=== PATIENT | female | born 1950 | race Hispanic/Latino ===

== ENCOUNTER 2017-07-18 14:29 | Emergency (ER) | payer MEDICARE, OTHER ==
[~2017-07-18] VITALS: Ht 162.6 cm; Wt 106.6 kg
[~2017-07-18 14:29] MED LIST: ATORVASTATIN CA20 MG PO; DEXILANT30 MG PO; GABAPENTIN300 MG PO; GLUCOPHAGE850 MG PO; LEVOTHYROXINE75 MCG PO; LISINOPRIL10 MG PO; MECLIZINE HCL12.5 MG PO; METFORMIN HCL500 MG PO; NAPROXEN250 MG PO
--- OUTSIDE RECORDS SUMMARY | 2017-07-18 14:32 | XMS REPORT ---
[facility] Address Unknown Phone Unavailable Care Team Providers Care Janitorial Services Supervisor Name Role Phone Unavailable Unavailable Problems This patient has no known problems. Allergies, Adverse Reactions, Alerts This patient has no known allergies or adverse reactions. Medications This patient has no known medications. Encounters Start Date/Time End Date/Time Encounter Type Admission Type Attending [facility] Care Department Encounter ID 2017-07-25 00:00:00 2017-07-25 00:00:00 Outpatient [facility] [id number] 2017-05-04 09:07:04 2017-05-04 09:07:04 Outpatient [facility] [id number] 2017-04-27 14:52:13 2017-04-27 14:52:13 Outpatient [facility] [id number] 2017-04-19 13:42:25 2017-04-19 13:42:25 Outpatient [facility] [id number] 2017-04-17 13:08:11 2017-04-17 13:08:11 Outpatient [facility] [id number] 2017-04-07 08:58:01 2017-04-07 08:58:01 Outpatient [facility] [id number] 2017-04-07 08:19:19 2017-04-07 08:19:19 Outpatient [facility] [id number] 2017-04-03 13:18:36 2017-04-03 13:18:36 Outpatient [facility] [id number] 2017-03-31 00:00:00 2017-03-31 00:00:00 Outpatient [facility] [id number] 2017-03-29 00:00:00 2017-03-29 00:00:00 Outpatient [facility] [id number] 2017-03-23 16:19:03 2017-03-23 16:19:03 Outpatient [facility] [id number] 2017-03-21 10:23:42 2017-03-21 10:23:42 Outpatient [facility] [id number] 2017-03-21 00:00:00 2017-03-21 00:00:00 Outpatient [facility] [id number]
--- NOTE | 2017-07-18 15:38 | Diagnostic Imaging Report ---
PROCEDURE: Frontal and lateral views of the chest. COMPARISON: Patients [facility], DX, CHEST SINGLE (PORTABLE), 07/08/2016, 23:45. INDICATIONS: COUGH, BRONCHITIS FINDINGS: Lines/tubes: None. Lungs: The lungs are well inflated. Stable 4-5 mm nodular density in the right upper to midlung, projecting over the posterior aspect of the right sixth rib. There is no evidence of pneumonia or pulmonary edema. Pleura: There is no pleural effusion or pneumothorax. Heart and mediastinum: The heart and the mediastinum are normal. Bones: No acute bony abnormality. IMPRESSION: 1. No acute cardiopulmonary abnormalities. 2. Stable 4-5 mm nodular density in the right upper to midlung, likely representing a calcified granuloma. Rashard Harper M.D. Dictated by: Rashard Harper M.D. on 07/18/2017 at 15:40 Electronically approved by: Rashard Harper M.D. on 07/18/2017 at 15:40
[2017-07-18 17:57] VITALS: BP 149/88
== END 2017-07-18 17:45 | disposition home or self-care (01) ==
LOC: ER 14:29
DX: J20.9 Acute bronchitis, unspecified (principal)
CPT/HCPCS: 71046; 87400; 99283

== ENCOUNTER 2017-08-17 14:49 | Emergency (ER) | payer OTHER, MEDICARE ==
[~2017-08-17] VITALS: Ht 162.6 cm; Wt 106.6 kg
--- OUTSIDE RECORDS SUMMARY | 2017-08-17 14:52 | XMS REPORT | Clinical Summary ---
Author Author [facility] Organization [facility] Address Unknown Phone Unavailable Care Team Providers Care Channeler Runner Name Role Phone Jatin aHll MD PCP Allergies Active Allergy Reactions Severity Noted Date Comments Iodine (Bulk) Rash 01/11/2007 Current Medications Prescription Sig. Disp. Refills Start End Date Status Date blood glucose Use as directed.. 1 Kit 0 07/10/19 Active meterIndications: DM 15 (diabetes mellitus), type 2 gabapentin (NEURONTIN) Take 1 capsule by mouth 3 270 capsule 0 Active 300 mg times daily. 15 capsuleIndications: Low back pain without sciatica, unspecified back pain laterality naproxen (NAPROSYN) 500 Take 1 tablet by mouth 2 90 tablet 1 03/31/19 Active mg tabletIndications: times daily (with meals). 16 Pain in joint, multiple sites, Chronic pain of right knee, Low back pain without sciatica, unspecified back pain laterality Miscellaneous Medical by [facility] [place]Non-Drug; Combo 1 Each 0 05/17/19 Active Supply MiscIndications: Route) route Permanent 17 Primary osteoarthritis of Handicap sticker. both knees sucralfate (CARAFATE) 100 Take 10 mL by mouth 4 420 mL 0 09/15/19 Active mg/mL oral times daily. 17 suspensionIndications: Gastroesophageal reflux disease, esophagitis presence not specified loratadine (CLARITIN) 10 Take 1 tablet by mouth 30 tablet 3 09/15/19 Active mg tabletIndications: daily. 17 Allergic rhinitis, unspecified chronicity, unspecified seasonality, unspecified trigger acetaminophen-codeine Take 1 tablet by mouth 2 40 tablet 0 07/05/20 Active (TYLENOL/CODEINE #3) times daily as needed for 17 300-30 mg per Pain. tabletIndications: Pain of right hip joint blood glucose test Check blood glucose 2 50 Each 3 10/04/19 Active stripsIndications: times weekly. 17 Controlled type 2 diabetes mellitus with complication, without long-term current use of insulin predniSONE (DELTASONE) 50 Take 1 tablet the 3 tablet 0 03/21/19 Active mg tabletIndications: 13 hours before your 18 Rash and other scheduled procedure nonspecific skin Take 1 tablet 7 hours eruption, Lung nodule before your scheduled Take 1 tablet 1 hour before your scheduled procedure,. diphenhydrAMINE HCl 50 mg Take 1 tablet 1 hour 1 tablet 0 03/21/19 Active tabletIndications: Rash before your scheduled 18 and other nonspecific procedure. skin eruption, Lung nodule famotidine (PEPCID) 20 mg Take 1 tablet by mouth 2 14 tablet 0 Active tabletIndications: Rash times daily as needed 18 and other nonspecific (heartburn). skin eruption, Lung nodule meclizine (ANTIVERT) 25 Take 1 tablet by mouth 3 30 tablet 0 03/21/19 Active mg TabIndications: times daily as needed for 18 Dizziness Other (dizziness). nystatin (NYSTOP) 100,000 Apply to affected area 4 15 g 0 03/21/19 Active unit/gram topical times daily. 18 powderIndications: Rash and other nonspecific skin eruption lancetsIndications: Check your blood glucose 100 Each 0 03/24/19 Active Impaired fasting glucose every morning. 18 atorvastatin (LIPITOR) 40 Take 1 tablet by mouth at 90 tablet 0 Active mg tabletIndications: bedtime nightly. 18 Dyslipidemia lisinopril (PRINIVIL, Take 1 tablet by mouth 90 tablet 0 04/27/19 Active ZESTRIL) 20 mg tablet daily Needs appointment 18 prior to next refill. metFORMIN (GLUCOPHAGE) Take 1 tablet by mouth 2 180 tablet 1 04/27/19 Active 500 mg tabletIndications: times daily (with meals) 18 Controlled type 2 For diabetes. diabetes mellitus with complication, without long-term current use of insulin levothyroxine (SYNTHROID) TAKE ONE TABLET BY MOUTH 90 tablet 0 Active 175 mcg ONCE DAILY IN THE MORNING 18 tabletIndications: BEFORE BREAKFAST. Hypothyroidism, unspecified type famotidine (PEPCID) 20 mg Take 1 tablet by mouth 90 tablet 1 04/27/19 Active tabletIndications: daily. 18 Gastroesophageal reflux disease, esophagitis presence not specified lancetsIndications: Check your blood glucose 1 Box 2 07/02/19 Discontin Impaired fasting glucose every morning. 15 18 ued blood glucose test Check blood glucose 2 50 Each 3 07/30/19 Discontin stripsIndications: High times weekly. 16 17 ued blood sugar dexlansoprazole Take 1 capsule by mouth 90 capsule 2 09/10/19 Discontin (DEXILANT) 30 mg delayed daily. 16 17 ued release capsuleIndications: GERD (gastroesophageal reflux disease) atorvastatin (LIPITOR) 40 Take 1 tablet by mouth at 90 tablet 0 03/21/19 Discontin mg tabletIndications: bedtime nightly. 16 18 ued Dyslipidemia meclizine (ANTIVERT) 25 Take 1 tablet by mouth 3 30 tablet 0 06/07/19 03/21/19 Discontin mg TabIndications: times daily as needed for 17 18 ued Dizziness Other (dizziness). lisinopril (PRINIVIL) 20 Take 1 tablet by mouth 90 tablet 1 06/07/19 02/09/20 Discontin mg tabletIndications: daily For blood pressure. 17 17 ued Essential hypertension, benign levothyroxine (SYNTHROID) Take 1 tablet by mouth 30 tablet 0 06/07/19 09/01/19 Discontin 175 mcg every morning (before 17 17 ued tabletIndications: breakfast). Hypothyroidism, unspecified type metFORMIN (GLUCOPHAGE) Take 1 tablet by mouth 2 180 tablet 1 06/07/19 04/27/19 Discontin 500 mg tabletIndications: times daily (with meals) 17 18 ued Controlled type 2 For diabetes. diabetes mellitus with complication, without long-term current use of insulin levothyroxine (SYNTHROID) TAKE ONE TABLET BY MOUTH 90 tablet 0 12/02/19 Discontin 175 mcg ONCE DAILY IN THE MORNING 17 17 ued tabletIndications: (BEFORE BREAKFAST) Hypothyroidism, unspecified type blood glucose test Check blood glucose 2 50 Each 3 09/16/19 Discontin stripsIndications: High times weekly. 17 17 ued blood sugar famotidine (PEPCID) 20 mg Take 1 tablet by mouth 90 tablet 1 09/15/19 04/27/19 Discontin tabletIndications: daily. 17 18 ued Gastroesophageal reflux disease, esophagitis presence not specified blood glucose test Check blood glucose 2 50 Each 3 09/16/19 Discontin stripsIndications: times weekly. 17 17 ued Controlled type 2 diabetes mellitus with complication, without long-term current use of insulin levothyroxine (SYNTHROID) TAKE ONE TABLET BY MOUTH 90 tablet 0 03/14/19 Discontin 175 mcg ONCE DAILY IN THE MORNING 17 18 ued tabletIndications: (BEFORE BREAKFAST) Hypothyroidism, unspecified type lisinopril (PRINIVIL, Take 1 tablet by mouth 90 tablet 0 02/10/20 Discontin ZESTRIL) 20 mg daily Needs appointment 17 18 ued tabletIndications: prior to next refill. Essential hypertension, benign levothyroxine (SYNTHROID) TAKE ONE TABLET BY MOUTH 90 tablet 0 03/21/19 Discontin 175 mcg ONCE DAILY IN THE MORNING 18 18 ued tabletIndications: BEFORE BREAKFAST Hypothyroidism, unspecified type atorvastatin (LIPITOR) 40 Take 1 tablet by mouth at 90 tablet 0 04/27/19 Discontin mg tabletIndications: bedtime nightly. 18 18 ued Dyslipidemia levothyroxine (SYNTHROID) TAKE ONE TABLET BY MOUTH 90 tablet 0 04/27/19 Discontin 175 mcg ONCE DAILY IN THE MORNING 18 18 ued tabletIndications: BEFORE BREAKFAST. Hypothyroidism, unspecified type Hospital, Clinic, or Ordered Dose Route Frequency Start End Date Status Other Facility Date Administered Medication lidocaine 1 % (XYLOCAINE) 2 mL IJ ONCE 10/29/19 10/29/19 Ended injection 2 17 17 mLIndications: Primary osteoarthritis of both knees triamcinolone acetonide 40 mg IX ONCE 10/29/19 10/29/19 Ended (KENALOG-40) injection 40 17 17 mgIndications: Primary osteoarthritis of both knees Active Problems Problem Noted Date Primary osteoarthritis of both knees 04/08/2015 Weakness of both lower extremities 04/08/2015 Difficulty walking 04/08/2015 DM II (diabetes mellitus, type II), controlled 02/17/2015 Obesity (BMI 30.0-34.9) 12/22/2011 Need for influenza vaccination 12/22/2011 High risk sexual behavior 12/22/2011 Other and unspecified hyperlipidemia 05/08/2007 Essential hypertension, benign Hypothyroidism Low back pain Abnormal glandular Papanicolaou smear of cervix Overview: [facility] Chest tightness or pressure Dizziness Hyperlipidemia Chest pain Encounters Date Type Specialty Care Team Description 07/25/2017 Lab Appointment Lab Ramez Hall MD Controlled type 2 diabetes mellitus without complication, without long-term current use of insulin; Essential hypertension: at goal 05/04/2017 Office Visit Rheumatology Keya Ledbetter MD Positive ISABEL ( antinuclear Jonas Abdi, antibody) (Primary Dx); Fellow() Osteoarthritis of both knees, unspecified osteoarthritis type; Thyroid disease; Family history of systemic lupus erythematosus; Pes anserine bursitis; Obesity (BMI 30.0-34.9) 04/27/2017 Office Visit Family Practice Ramez Hall MD Controlled type 2 diabetes mellitus without complication, without long-term current use of insulin (Primary Dx); Essential hypertension: at goal; Dyslipidemia; Controlled type 2 diabetes mellitus with complication, without long-term current use of insulin; Hypothyroidism, unspecified type; Gastroesophageal reflux disease, esophagitis presence not specified; Positive ISABEL (antinuclear antibody):L f/u with rheumatology 04/17/2017 Ancillary Radiology Rash and other Procedure nonspecific skin eruption; Lung nodule 04/17/2017 Ancillary Family Practice Ramez Hall MD Rash and other Orders nonspecific skin eruption; Lung nodule 04/07/2017 Office Visit Family Practice Ramez Hall MD Positive ISABEL (antinuclear antibody) (Primary Dx); Encounter for immunization ; Elevated MCV; Unsteadiness on feet ; Weakness of both lower extremities 03/30/2017 Orders Only Family Practice Ramez Hall MD Positive ISABEL (antinuclear antibody) (Primary Dx); Hypothyroidism, unspecified type 03/23/2017 Lab Appointment Lab Ramez Hall MD Rash and other nonspecific skin eruption; Lung nodule 03/23/2017 Orders Only Family Practice Ramez Hall MD 03/21/2017 Office Visit Family Practice Ramez Hall MD Rash and other nonspecific skin eruption (Primary Dx); Lung nodule; Dyslipidemia; Hypothyroidism, unspecified type; Dizziness 03/21/2017 Refill [facility] Earl Anderson RN Impaired fasting glucose 03/14/2017 Refill [facility] Ramez Hall MD Hypothyroidism, unspecified type 02/20/2017 Pharmacy Visit 02/08/2017 Pharmacy Visit 02/08/2017 Refill [facility] Bernardino Gann III, MD Essential hypertension, benign 12/01/2016 Refill [facility] Ramez Hall MD Hypothyroidism, unspecified type 10/28/2016 Office Visit [facility] Ramez Hall MD Primary osteoarthritis of IsrealAmador MD both knees 09/30/2016 Refill [facility] Ramez Hall MD Controlled type 2 diabetes mellitus with complication, without long-term current use of insulin (Primary Dx) 09/26/2016 Telephone [facility] Cheyenne Adkins RN Information Only 09/26/2016 Orders Only [facility] Cheyenne Adkins RN Controlled type 2 diabetes mellitus with complication, without long-term current use of insulin (Primary Dx) 09/15/2016 Pharmacy Visit 09/14/2016 Office Visit [facility] Ramez Hall MD Gastroesophageal reflux disease, esophagitis presence not specified (Primary Dx); Primary osteoarthritis of both knees; Controlled type 2 diabetes mellitus with complication, without long-term current use of insulin; Pain of right hip joint; Chronic pain of right knee,; Allergic rhinitis, unspecified chronicity, unspecified seasonality, unspecified trigger 09/14/2016 Pharmacy Visit 09/12/2016 Refill [facility] Ramez Hall MD High blood sugar 08/31/2016 Refill [facility] Bernardino Gann III, MD Hypothyroidism, unspecified type (Primary Dx) 08/23/2016 Refill [facility] Bernardino Gann III, MD after 08/16/2016 Immunizations Name Dates Previously Given Next Due Influenza Vaccine 04/20/2015 (Deferred: Patient Refused), 12/22/2011 Influenza Vaccine, 04/07/2017 (Deferred: Vaccine Unavailable) Seasonal, Injectable PCV 13 (Pnuemococcal 04/07/2017 Conjugated 13 Valent) Pneumoccoccal 11/10/2011 TDap (Tetanus Toxoid, 04/07/2017 Reduced Diphtheria Toxoid And Acellular Pertussis, Absorbed) Td Tetanus, diphtheria 01/11/2007 Toxoids Vaccine Tropicamide 0.5% Eye-Sabrina 06/20/2016 15ml Family History Medical History Relation Name Comments Cancer Father prostate Hypertension Father Arthritis Mother Diabetes Mother Heart Mother IA at age 66 Stroke Mother Relation Name Status Comments Father (Age 70) Mother stroke (Age 67) Social History Tobacco Use Types Packs/Day Years Used Date Never Smoker Smokeless Tobacco: Never Used Tobacco Cessation: Counseling Given: Yes Alcohol Use Drinks/Week oz/Week Comments Yes Social Sex Assigned at Date Recorded Not on file Last Filed Vital Signs Vital Sign Reading Time Taken Blood Pressure 143/70 05/04/2017 9:06 AM CABLE INSTALLATION MANAGER Pulse 76 05/04/2017 9:06 AM CABLE INSTALLATION MANAGER Temperature 36.7 C (98 F) 05/04/2017 9:06 AM CABLE INSTALLATION MANAGER Respiratory Rate 18 05/04/2017 9:06 AM CABLE INSTALLATION MANAGER Oxygen Saturation - - Inhaled Oxygen - - Concentration Weight 106.2 kg (234 lb 3.2 oz) 05/04/2017 9:06 AM CABLE INSTALLATION MANAGER Height 162.6 cm (5' 4") 05/04/2017 9:06 AM CABLE INSTALLATION MANAGER Body Mass Index 40.2 05/04/2017 9:06 AM CABLE INSTALLATION MANAGER Plan of Treatment Health Maintenance Due Date Last Done Comments DM FOOT EXAM (YEARLY) 06/06/2017 06/06/2016 DM MICROALBUMIN URINE 06/20/2017 06/20/2016, 07/09/2015, 07/01/2014, SCRN (YEARLY) Additional history exists DM RETINAL EXAM (YEARLY) 06/20/2017 06/20/2016, 08/20/2014, 07/21/2014, Additional history exists BREAST CANCER SCRN 07/04/2017 07/04/2016, 04/15/2015, 02/14/2013, (YEARLY) Additional history exists COLORECTAL CANCER SCRN 07/26/2017 07/26/2016, 10/18/2007, 10/18/2007, ANNUAL (FIT/FOBT) AGE 51 Additional history exists TO 76 DM HGBA1C (YEARLY) 07/25/2018 07/25/2017, 03/23/2017, 06/20/2016, Additional history exists IMM PNEUMOCOCCAL AGE 66 Completed 11/10/2011 AND UP Results * HEMOGLOBIN A1C (07/25/2017 8:16 AM) Only the most recent of 2 results within the time period is included. Component Value Ref Range Hemoglobin A1c 6.3 (H) 4.3 - 6.1 % Est Average Gluc 134.1 mg/dL Specimen Performing Laboratory Blood MIS[facility] * LIVER PROFILE (07/25/2017 8:16 AM) Component Value Ref Range T Protein 6.4 6.0 - 8.3 g/dL Albumin 3.8 3.7 - 5.3 g/dL T Bilirubin 0.5 0.2 - 1.2 mg/dL Alk Phos 69 34 - 104 U/L AST 18 13 - 39 U/L ALT 30 7 - 52 U/L D Bilirubin 0.1 0.0 - 0.2 mg/dL Specimen Performing Laboratory Blood [facility]IS[facility] * LIPID PROFILE (07/25/2017 8:16 AM) Component Value Ref Range Cholesterol 186 mg/dL Comment: REFERENCE RANGE: Desirable: <200 mg/dL Borderline: 200-240 mg/dL High Risk: >240 mg/dL Triglyceride 135 <150 mg/dL Comment: REFERENCE RANGE: Normal: <150 mg/dL Borderline High: 150-199 mg/dL High: 200-499 mg/dL Very High: >be=211 mg/dL HDL 45 mg/dL Comment: Increased CHD risk: <40 mg/dL Decreased CHD risk: >60 mg/dL LDL 114 mg/dL Comment: REFERENCE RANGE: Optimal: <100 mg/dL Near Optimal: 100-129 mg/dL Borderline High: 130-159 mg/dL High: 160-189 mg/dL Very High: >bl=624 mg/dL Specimen Performing Laboratory Blood [facility]IS[facility] * CBC/DIFF (07/25/2017 8:16 AM) Only the most recent of 2 results within the time period is included. Component Value Ref Range WBC 5.6 4.5 - 11.0 K/uL RBC 4.48 4.20 - 5.40 M/uL Hemoglobin 13.3 12.0 - 16.0 g/dL Hematocrit 42.8 37.0 - 47.0 % MCV 96 (H) 82 - 92 fL MCH 29.7 27.0 - 32.0 pg MCHC 31.1 (L) 32.0 - 36.0 g/dL RDW 50.4 (H) 36.4 - 46.3 fL Platelet 199 150 - 400 K/uL Mean Platelet Volume 12.1 9.4 - 12.4 fL Percent NRBC 0.0 Absolute NRBC 0.00 Neutrophil 58.6 34.0 - 70.0 % Lymphocyte 27.9 20.0 - 50.0 % Monocyte 10.7 5.0 - 12.0 % Eosinophil 1.6 0.7 - 5.0 % Basophil 0.7 0.1 - 1.2 % Pct Immat Gran 0.5 0.0 - 0.5 Neutrophil, Abs 3.28 1.56 - 6.13 K/uL Lymphocyte, Abs 1.56 1.18 - 3.74 K/uL Monocyte, Abs 0.60 (H) 0.24 - 0.36 K/uL Eosinophil, Abs 0.09 0.04 - 0.36 K/uL Basophil, Abs 0.04 0.01 - 0.08 K/uL Absol Immat Gran 0.03 0.00 - 0.03 K/uL Specimen Performing Laboratory Blood [facility]IS[facility] * BASIC METABOLIC PANEL (07/25/2017 8:16 AM) Component Value Ref Range CO2 30 21 - 31 mmol/L Chloride 106 98 - 107 mmol/L Potassium 4.3 3.5 - 5.1 mmol/L Sodium 144 136 - 145 mmol/L Glucose 107 70 - 110 mg/dL Urea Nitrogen 17 7 - 25 mg/dL Creatinine 0.70 0.6 - 1.2 mg/dL Anion Gap 8 Calcium 9.3 8.6 - 10.3 mg/dL GFR, Estimated >60 mL/min/1.73 m2 GFR, Estim, Afr-Am >60 mL/min/1.73 m2 Specimen Performing Laboratory Blood [facility] * BMP POC (04/19/2017 2:06 PM) Component Value Ref Range TCO2 POC 30 21 - 32 mmol/L Chloride POC 103 98 - 107 mmol/L Potassium POC 3.7 3.50 - 5.10 mmol/L Sodium POC 141 136 - 145 mmol/L Glucose POC 111 (H) 74 - 106 mg/dL Urea Nitrogen POC 14 7 - 18 mg/dL Creatinine POC 0.8 0.6 - 1.3 mg/dL Ionized Calcium POC 0.98 (L) 1.15 - 1.29 mmol/L GFR, Estimated >60 mL/min/1.73 m2 GFR, Estim, Afr-Am >60 mL/min/1.73 m2 Specimen Performing Laboratory [facility] * CT CHEST W/O CONTRAST ROUTINE (04/17/2017 1:55 PM) Specimen Performing Laboratory SMS Impressions IMPRESSION: A calcified granuloma in the right upper lobe from old granulomatous disease corresponds to the nodular opacity seen on comparison chest radiograph. Dictated By: Anupam Jones MD, 04/17/2017 2:12 PM I have reviewed the study and agree with the findings in this report. Signed By: Autumn Begum MD, 04/17/2017 4:28 PM Narrative EXAM: CT Chest WITHOUT contrast INDICATION: Lung nodule COMPARISON: Chest radiograph 01/13/2016 TECHNIQUE: Chest was scanned utilizing a multidetector helical scanner from the lung apex through the level of the adrenal glands without administration of IV contrast. Absence of intravenous contrast decreases sensitivity for detection of lymphadenopathy and vascular pathology. Coronal and sagittal reformations were obtained. Low dose protocol was performed. IV CONTRAST: None COMPLICATIONS: None RADIATION DOSE: Total DLP: 138 mGy*cm Estimated effective dose: (DLP x 0.014 x size factor) mSv CTDIvol has been reviewed. It is below the limits set by the Radiation Protocol Committee (RPC). FINDINGS: LUNGS AND AIRWAYS: A 7 mm calcified granuloma in the right upper lobe (series 2, image 46) from old granulomatous disease. The lungs parenchyma is otherwise normal.Airways are normal. PLEURA: The pleural spaces are clear. HEART AND MEDIASTINUM: The thyroid gland is normal.No mediastinal, hilar or axillary lymphadenopathy.The heart is normal in size.There is no pericardial effusion. Mild calcification of the aortic annulus and aortic arch. UPPER ABDOMEN: Status post cholecystectomy. Otherwise, visualized unenhanced portions of the liver, spleen, adrenal glands, kidneys, and bowel are unremarkable. BONES: Mild multilevel degenerative changes of the thoracic spine. SOFT TISSUES: Unremarkable. Procedure Note Interface, Rad/Mammog In - 04/17/2017 4:33 PM CABLE INSTALLATION MANAGER EXAM: CT Chest WITHOUT contrast INDICATION: Lung nodule COMPARISON: Chest radiograph 01/13/2016 TECHNIQUE: Chest was scanned utilizing a multidetector helical scanner from the lung apex through the level of the adrenal glands without administration of IV contrast. Absence of intravenous contrast decreases sensitivity for detection of lymphadenopathy and vascular pathology. Coronal and sagittal reformations were obtained. Low dose protocol was performed. IV CONTRAST: None COMPLICATIONS: None RADIATION DOSE: Total DLP: 138 mGy*cm Estimated effective dose: (DLP x 0.014 x size factor) mSv CTDIvol has been reviewed. It is below the limits set by the Radiation Protocol Committee (RPC). FINDINGS: LUNGS AND AIRWAYS: A 7 mm calcified granuloma in the right upper lobe (series 2, image 46) from old granulomatous disease. The lungs parenchyma is otherwise normal. Airways are normal. PLEURA: The pleural spaces are clear. HEART AND MEDIASTINUM: The thyroid gland is normal. No mediastinal, hilar or axillary lymphadenopathy. The heart is normal in size. There is no pericardial effusion. Mild calcification of the aortic annulus and aortic arch. UPPER ABDOMEN: Status post cholecystectomy. Otherwise, visualized unenhanced portions of the liver, spleen, adrenal glands, kidneys, and bowel are unremarkable. BONES: Mild multilevel degenerative changes of the thoracic spine. SOFT TISSUES: Unremarkable. IMPRESSION IMPRESSION: A calcified granuloma in the right upper lobe from old granulomatous disease corresponds to the nodular opacity seen on comparison chest radiograph. Dictated By: Anupam Jones MD, 04/17/2017 2:12 PM I have reviewed the study and agree with the findings in this report. Signed By: Autumn Begum MD, 04/17/2017 4:28 PM * CCP IGG ABS (04/07/2017 8:55 AM) Component Value Ref Range CCP Abs IgG/IgA 3 Reference range: 0 to 19 Unit: units (note) Negative <20 Weak positive 20 - 39 Moderate positive 40 - 59 Strong positive >59 Specimen Performing Laboratory Blood [facility] * FOLIC ACID (04/07/2017 8:55 AM) Component Value Ref Range Folic Acid 17.5 5.9 - 24.8 ng/mL Specimen Performing Laboratory Blood [facility] * VITAMIN B12 (04/07/2017 8:55 AM) Component Value Ref Range Vitamin B12 427 211 - 911 pg/mL Specimen Performing Laboratory Blood [facility]IS[facility] * RA FACTOR (04/07/2017 8:55 AM) Component Value Ref Range RA Factor <10 0 - 15 IU/mL Specimen Performing Laboratory Blood [facility] * SJOGREN'S AB (04/03/2017 1:17 PM) Component Value Ref Range Anti SSA Negative 0 - 15 EU/mL Comment: REFERENCE RANGE: Negative <16 Equivocal 16-20 Positive >20 Anti SSB Negative 0 - 15 EU/mL Comment: REFERENCE RANGE: Negative <16 Equivocal 16-20 Positive >20 Specimen Performing Laboratory Blood [facility]IS[facility] * ANTI TORRES BOTTOM FILLER AB (04/03/2017 1:17 PM) Component Value Ref Range Anti-Sm/BOTTOM FILLER Negative EU/mL Comment: REFERENCE RANGE: Negative <16 Equivocal 16-20 Positive >20 Specimen Performing Laboratory Blood MISYS * ANTI TORRES AB (04/03/2017 1:17 PM) Component Value Ref Range Anti-Torres Negative EU/mL Comment: REFERENCE RANGE: Negative <16 Equivocal 16-20 Positive >20 Specimen Performing Laboratory Blood MIS[facility] * CRP, HIGH SENS (04/03/2017 1:17 PM) Component Value Ref Range CRP, high sens 0.804 (H) 0.000 - 0.300 mg/dL Specimen Performing Laboratory Blood [facility] * TSH (04/03/2017 1:17 PM) Only the most recent of 2 results within the time period is included. Component Value Ref Range TSH 0.97 0.45 - 3.50 uIU/mL Specimen Performing Laboratory Blood MIS[facility] * SED RATE (04/03/2017 1:17 PM) Component Value Ref Range Sed Rate 26 <30 mm/Hr Specimen Performing Laboratory Blood [facility]IS[facility] * ANTI DSDNA BY CRITHIDIA (04/03/2017 1:17 PM) Component Value Ref Range Anti dsDNA Negative NEG Titer Specimen Performing Laboratory Blood [facility] * CK (04/03/2017 1:17 PM) Component Value Ref Range CK 141 30 - 200 U/L Specimen Performing Laboratory Blood MIS[facility] * COMPLEMENT C4 (04/03/2017 1:17 PM) Component Value Ref Range Complement C4 31.3 10.0 - 40.0 mg/dL Specimen Performing Laboratory Blood MISYS * COMPLEMENT C3 (04/03/2017 1:17 PM) Component Value Ref Range Complement C3 134.0 90.0 - 180.0 mg/dL Specimen Performing Laboratory Blood [facility]IS[facility] * COMPREHENSIVE METABOLIC PANEL(DBIL NOT INCLUDED) (03/23/2017 4:19 PM) Component Value Ref Range Albumin 3.3 (L) 3.4 - 5.0 g/dL Calcium 8.7 8.50 - 10.20 mg/dL CO2 28.7 21 - 32 mmol/L Chloride 106 98 - 107 mmol/L Creatinine 0.77 0.60 - 1.30 mg/dL Glucose 99 70 - 99 mg/dL Alk Phos 72 45 - 117 U/L Potassium 3.8 3.50 - 5.10 mmol/L Sodium 142 136 - 145 mmol/L ALT 47 12 - 78 U/L AST 32 15 - 37 U/L Urea Nitrogen 13 7 - 18 mg/dL T Bilirubin 0.5 0.2 - 1.0 mg/dL T Protein 6.9 6.4 - 8.2 g/dL GFR, Estimated >60 mL/min/1.73 m2 GFR, Estim, Afr-Am >60 mL/min/1.73 m2 Anion Gap 7.3 Specimen Performing Laboratory Blood [facility]IS[facility] * ISABEL (03/23/2017 4:19 PM) Component Value Ref Range ISABEL Screen Positive (A) NEG ISABEL Titer 640 Titer ISABEL Pattern Homogenous Pattern Specimen Performing Laboratory Blood [facility] * XRAY HIP BILATERAL 2 VIEWS AND AP PELVIS (09/14/2016 4:11 PM) Specimen Performing Laboratory SMS Impressions IMPRESSION: No acute osseous lesion. Mild degenerative arthrosis of the hips. Signed By: Evan Cruz MD, 09/15/2016 8:17 AM Narrative Bilateral hip radiograph HISTORY:righ thip pain COMPARISON: None DISCUSSION: There is no displaced fracture or malalignment. Mild narrowing of the joint spaces of the hips. The visualized soft tissues appear unremarkable. Procedure Note Interface, Rad/Mammog In - 09/15/2016 8:22 AM CDT Bilateral hip radiograph HISTORY: righ thip pain COMPARISON: None DISCUSSION: There is no displaced fracture or malalignment. Mild narrowing of the joint spaces of the hips. The visualized soft tissues appear unremarkable. IMPRESSION: No acute osseous lesion. Mild degenerative arthrosis of the hips. Signed By: Evan Cruz MD, 09/15/2016 8:17 AM after 08/16/2016
--- OUTSIDE RECORDS SUMMARY | 2017-08-17 14:52 | XMS REPORT | Continuity of Care Document ---
Author Author [facility] Organization [facility] Address [address] [place] [address] Phone Unavailable Care Team Providers Care Lan Administrator Name Role Phone NO, PCP PCP Unavailable Insurance Providers Guarantor Stephanie Hernandez Address [address] [place] [address] [facility] Policy Number [id number] Subscriber's Name ChanellStephanie Relationship 18 Self / Same As Patient Group Number [id number] Effective Date 17 [facility] Policy Number [id number] Subscriber's Name HernandezStephanie Relationship 18 Self / Same As Patient Effective Date 16 Advance Directives Directive Response Recorded Date/Time Does the patient have an advance directive? No 07/09/16 3:16am If yes, is advance directive on file with [facility]? No 07/09/16 3:16am If not on file with [facility] will patient provide a copy? No 07/27/16 9:16am Do you have a Directive to Physician? No 07/18/17 3:53pm Do you have a Medical Power of Director Life? No 07/18/17 3:53pm Do you have an out of hospital Do Not Resuscitate Order? No 07/18/17 3:53pm Do you have any special needs we should be aware of? No 07/18/17 3:53pm Do you have a support person here with you today? Yes 07/18/17 3:53pm Did patient receive Notice of Privacy Practices? Yes 07/18/17 3:53pm Did patient receive patient rights and responsibilities? Yes 07/18/17 3:53pm Problems Medical Problem Onset Date Status Chest pain Unknown Medications Current Home Medications Medication Dose Units Route Directions Days Qty Instructions Start Date Atorvastatin Calcium 20 Mg Tablet 40 Mg Oral Bedtime 30 Tab Gabapentin 300 Mg Capsule 300 Mg Oral Three Times A Day 60 Cap Levothyroxine Sodium 75 Mcg Tablet 175 Mcg Oral Daily 30 Tab Lisinopril 10 Mg Tablet 20 Mg Oral Daily 30 Tab Meclizine Hcl 12.5 Mg Tablet 25 Mg Oral Three Times A Day as needed for Dizziness Metformin Hcl 500 Mg Tablet 500 Mg Oral Twice A Day 60 Tab Metformin Hcl (Glucophage) 850 Mg Tablet 500 Mg Oral Twice A Day Past Home Medications Medication Directions Ordered Status Dexlansoprazole (Dexilant) 30 Mg Cap., 30 Mg Oral Daily Discontinued Naproxen 250 Mg Tablet, 500 Mg Oral Twice A Day Discontinued Social History Social History Problem Response Recorded Date/Time Onset Date Status Hx Psychiatric Problems No 07/09/2016 3:16am Not Applicable Not Applicable Hx Substance Use Disorder No 07/27/2016 9:45am Not Applicable Not Applicable Hx Alcohol Use No 07/27/2016 9:45am Not Applicable Not Applicable Smoking Status Start Date Stop Date Never Smoker Hospital Discharge Instructions No hospital discharge instruction information available. Plan of Care Discharge Date 07/18/17 5:45pm Disposition HOME, SELF-CARE Condition at Discharge Stable Instructions/Education Provided Bronchitis (Acute) - Adult Forms Provided Work/School Excuse Prescriptions See Medication Section Referrals PASHA JOE MD Address: [address] [place] [id number] Additional Instructions/Education 1. increase oral fluids 2. return to ed as needed Functional Status No functional status information available. Allergies, Adverse Reactions, Alerts Allergen Type Severity Reaction Status Last Updated Iodine Allergy Intermediate Active 07/18/17 Immunizations No immunization information available. Vital Signs Acute Vital Signs Vital Response Date/Time Pulse Pulse Rate (adult) 76 bpm (60 - 90) 07/18/2017 5:57pm Respiratory Rate 20 bpm (12 - 24) 07/18/2017 5:57pm Blood Pressure 149/88 mm Hg 07/18/2017 5:57pm Height 5 ft 4 in 07/18/2017 2:46pm Weight 235 lb 07/18/2017 2:46pm Body Mass Index 40.3 kg/m^2 07/18/2017 2:46pm Results Laboratory Results Test Name Result Units Flags Reference Collection Date/Time Result Date/ Time Comments Influenza Virus Types A,B Antigen NEGATIVE NEGATIVE 07/18/2017 4:16pm 07/18/2017 5:00pm Procedures Procedure Status Date Provider(s) X-ray of chest, two views Active 07/18/17 TAMIA AMAYA SWORD SWALLOWER Encounters Encounter Location Arrival/Admit Date Discharge/Depart Date Attending Provider Departed Emergency Room [facility] 07/18/17 2:29pm 5:45pm TYSON DUMONT MD
--- NOTE | 2017-08-17 16:14 | Diagnostic Imaging Report ---
Exams: Cervical spine CTs without IV contrast History: Neck pain/tingling in right neck radiates to arm. Comparison studies: None Technique: Axial images were obtained through the cervical region. Coronal and sagittal images reconstructed from the axial data. Intravenous contrast: None Findings: Evaluation from C5 C6-T1 is somewhat limited by attenuation artifact related due to the patient's shoulders. Atlantoaxial articulation: Intact Alignment: Straightened cervical curvature may be positional. Mild cervical curvature convex to the right, nonspecific, also possibly positional. Cervicomedullary junction: No abnormalities. Patent foramen magnum. Soft tissues: No gross abnormalities. Vertebrae: No fractures, neoplasm or infection. Degenerative changes: C2-C3: Mild bilateral facet arthrosis. Patent canal and foramina. C3-4: Moderate canal stenosis due to a disc bulge and thickened ligamentum flavum. Mild bilateral frontal stenosis due to uncovertebral arthrosis. . C4-5: Small disc bulge indents the thecal sac without gross significant canal stenosis. Uncovertebral and bilateral facet arthrosis with without significant foraminal stenosis. C5-6: Mildly degenerated disc with loss of disc height. Mild canal stenosis due to disc osteophyte complex. Moderate right and mild left foraminal stenosis due to uncovertebral arthrosis. C6-7: Mildly degenerated disc with loss of disc height. At least mild canal stenosis due to disc osteophyte complex. Severe bilateral foraminal stenosis due to uncovertebral arthrosis. C7-T1: Bilateral facet arthrosis. No significant canal or foraminal stenosis. IMPRESSION: 1. Mildly degenerated C5-C6 and C6-C7 discs. 2. Moderate canal stenosis at C3-C4 where there is a central disc protrusion. Mild canal stenosis at C5-C6 and C6-C7 due to disc osteophyte complexes. 3. Multilevel degenerative foraminal stenosis, worse/severe bilaterally at C6-C7. Signed by: Dr. Kiel Weiss M.D. on 08/17/2017 4:11 PM
[2017-08-17] MEDS ORDERED: KETOROLAC TROMETHAMINE 30 MG/ML VIAL IV STA (16:58)
[2017-08-17 17:34] LABS: BASOPHILS % 0.6 % (0.0-1.0); EOSINOPHILS # (AUTO) 0.1 (0.0-0.4); EOSINOPHILS % 0.9 % (0.0-6.0); HEMATOCRIT 42.4 % (34.2-44.1); HEMOGLOBIN 13.8 g/dL (12.0-16.0); LYMPHOCYTES # (AUTO) 1.7 (1.0-3.2); LYMPHOCYTES % 25.1 % (18.0-39.1); MEAN CORPUSCULAR HEMOGLOBIN 30.2 pg (28-32); MEAN CORPUSCULAR HGB CONC 32.5 g/dL (31-35); MEAN CORPUSCULAR VOLUME 92.8 fL (81-99); MONOCYTES # (AUTO) 0.6 (0.2-0.8); MONOCYTES % 9.2 % (4.4-11.3); NEUTROPHILS # (AUTO) 4.3 (2.1-6.9); NEUTROPHILS % 63.9 % (38.7-80.0); PLATELET COUNT 192 x10e3/uL (140-360); RED BLOOD COUNT 4.57 x10e6/uL (3.6-5.1); RED CELL DISTRIBUTION WIDTH 14.4 % (11.7-14.4)
[2017-08-17 17:52] LABS: ANION GAP 11.8 mmol/L (8-16); BLOOD UREA NITROGEN 13 mg/dL (7-26); BUN/CREATININE RATIO 17 (6-25); CALCIUM 9.1 mg/dL (8.4-10.2); CARBON DIOXIDE 29 mmol/L (22-29); CHLORIDE 104 mmol/L (98-107); CREATINE KINASE 356 IU/L (29-168); CREATININE, SERUM 0.77 mg/dL (0.57-1.11); EST GLOMERULAR FILTRATION RATE > 60 ML/MIN (60-); GLUCOSE 93 mg/dL (74-118); POTASSIUM 3.8 mmol/L (3.5-5.1); SODIUM 141 mmol/L (136-145)
[2017-08-17 18:52] VITALS: BP 166/91
== END 2017-08-17 19:03 | disposition home or self-care (01) ==
LOC: ER 14:49
DX: M25.511 Pain in right shoulder (principal); M79.621 Pain in right upper arm; M25.521 Pain in right elbow; M79.631 Pain in right forearm; M54.12 Radiculopathy, cervical region; I10 Essential (primary) hypertension; E11.9 Type 2 diabetes mellitus without complications; E03.9 Hypothyroidism, unspecified
CPT/HCPCS: 36415; 72125; 80048; 82550; 82553; 84484; 85025; 93005; 99283; J1885

== ENCOUNTER 2017-12-26 16:34 | Emergency (ER) | payer MEDICARE ==
[~2017-12-26] VITALS: Ht 162.6 cm; Wt 106.6 kg
--- OUTSIDE RECORDS SUMMARY | 2017-12-26 16:38 | XMS REPORT | Clinical Summary ---
Author Author [facility] Organization [facility] Address Unknown Phone Unavailable Care Team Providers Care Grades 1 Through 5 Teacher Name Role Phone Ramez Hall MD PCP Allergies Active Allergy Reactions Severity Noted Date Comments Iodine (Bulk) Rash 01/11/2007 Current Medications Prescription Sig. Disp. Refills Start End Date Status Date blood glucose Use as directed.. 1 Kit 0 07/10/19 Active meterIndications: DM 15 (diabetes mellitus), type 2 gabapentin (NEURONTIN) Take 1 capsule by mouth 3 270 capsule 0 02/18/20 Active 300 mg times daily. 15 capsuleIndications: Low back pain without sciatica, unspecified back pain laterality naproxen (NAPROSYN) 500 Take 1 tablet by mouth 2 90 tablet 1 03/31/19 Active mg tabletIndications: times daily (with meals). 16 Pain in joint, multiple sites, Chronic pain of right knee, Low back pain without sciatica, unspecified back pain laterality Miscellaneous Medical by [facility].(Non-Drug; Combo 1 Each 0 [...] tablet by mouth 2 40 tablet 0 09/15/19 Active (TYLENOL/CODEINE #3) times daily as needed [...] tablet by mouth 2 14 tablet 0 03/21/19 Active tabletIndications: Rash times daily as needed [...] by mouth at 90 tablet 0 04/27/19 Active mg tabletIndications: bedtime nightly. 18 Dyslipidemia levothyroxine (SYNTHROID) TAKE ONE TABLET BY MOUTH 90 tablet 0 04/27/19 Active 175 mcg ONCE DAILY IN THE MORNING 18 tabletIndications: BEFORE BREAKFAST. Hypothyroidism, unspecified type famotidine (PEPCID) 20 mg Take 1 tablet by mouth 90 tablet 1 04/27/19 Active tabletIndications: daily. 18 Gastroesophageal reflux disease, esophagitis presence not specified levothyroxine (SYNTHROID) TAKE ONE TABLET BY MOUTH 90 tablet 0 12/21/19 Active 175 mcg ONCE DAILY IN THE MORNING 18 tabletIndications: BEFORE BREAKFAST Hypothyroidism, unspecified type levothyroxine (SYNTHROID) TAKE ONE TABLET BY MOUTH 90 tablet 0 12/23/19 Active 175 mcg ONCE DAILY IN THE MORNING 18 tabletIndications: BEFORE BREAKFAST Hypothyroidism, unspecified type lisinopril (PRINIVIL, TAKE 1 TABLET BY MOUTH 90 tablet 0 12/27/19 Active ZESTRIL) 20 mg ONCE DAILY (NEED 18 tabletIndications: APPOINTMENT PRIOR TO Essential hypertension, NEXT REFILL) benign atorvastatin (LIPITOR) 40 TAKE ONE TABLET BY MOUTH 90 tablet 0 12/27/19 Active mg tabletIndications: AT BEDTIME NIGHTLY 18 Dyslipidemia metFORMIN (GLUCOPHAGE) TAKE 1 TABLET BY MOUTH 180 tablet 1 12/27/19 Active 500 mg tabletIndications: TWICE DAILY (WITH MEALS) 18 Controlled type 2 FOR DIABETES diabetes mellitus with complication, without long-term current use of insulin lancetsIndications: Check your blood glucose 1 Box 2 07/02/19 03/21/19 Discontin Impaired fasting glucose every morning. 15 18 ued atorvastatin (LIPITOR) 40 Take 1 tablet by mouth at 90 tablet 0 09/10/19 03/21/19 Discontin mg tabletIndications: bedtime nightly. 16 [...] pressure. 17 17 ued Essential hypertension, benign metFORMIN (GLUCOPHAGE) Take 1 tablet by mouth 2 180 tablet 1 06/07/19 04/27/19 Discontin 500 mg tabletIndications: times daily (with meals) 17 18 ued Controlled type 2 For diabetes. diabetes mellitus with complication, without long-term current use of insulin famotidine (PEPCID) 20 mg Take 1 tablet by mouth 90 tablet 1 09/15/19 04/27/19 Discontin tabletIndications: daily. 17 18 ued Gastroesophageal reflux disease, esophagitis presence not specified levothyroxine (SYNTHROID) TAKE ONE TABLET BY MOUTH 90 tablet 0 12/06/19 03/14/19 Discontin 175 mcg ONCE DAILY IN THE MORNING 17 18 ued tabletIndications: (BEFORE BREAKFAST) Hypothyroidism, unspecified type lisinopril (PRINIVIL, Take 1 tablet by mouth 90 tablet 0 02/10/20 04/27/19 Discontin ZESTRIL) 20 mg daily Needs appointment 17 18 ued tabletIndications: prior to next refill. Essential hypertension, benign levothyroxine (SYNTHROID) TAKE ONE TABLET BY MOUTH 90 tablet 0 03/16/19 03/21/19 Discontin 175 mcg ONCE DAILY IN THE MORNING 18 18 ued tabletIndications: BEFORE BREAKFAST Hypothyroidism, unspecified type atorvastatin (LIPITOR) 40 Take 1 tablet by mouth at 90 tablet 0 03/21/19 04/27/19 Discontin mg tabletIndications: bedtime nightly. 18 18 ued Dyslipidemia levothyroxine (SYNTHROID) TAKE ONE TABLET BY MOUTH 90 tablet 0 03/21/19 04/27/19 Discontin 175 mcg ONCE DAILY IN THE MORNING 18 18 ued tabletIndications: BEFORE BREAKFAST. Hypothyroidism, unspecified type lisinopril (PRINIVIL, Take 1 tablet by mouth 90 tablet 0 04/27/19 09/27/19 Discontin ZESTRIL) 20 mg tablet daily Needs appointment 18 18 ued prior to next refill. metFORMIN (GLUCOPHAGE) Take 1 tablet by mouth 2 180 tablet 1 04/27/19 12/27/19 Discontin 500 mg tabletIndications: times daily (with meals) 18 18 ued Controlled type 2 For diabetes. diabetes mellitus with complication, without long-term current use of insulin lisinopril (PRINIVIL, TAKE 1 TABLET BY MOUTH 90 tablet 0 09/28/19 12/27/19 Discontin ZESTRIL) 20 mg ONCE DAILY NEEDS 18 18 ued tabletIndications: APPOINTMENT PRIOR TO NEXT Essential hypertension, REFILL benign Active Problems Problem Noted Date Primary osteoarthritis [...] Encounters Date Type Specialty Care Team Description 12/26/2017 Refill Family Practice Ramez Hall MD Dyslipidemia; Controlled type 2 diabetes mellitus with complication, without long-term current use of insulin 12/26/2017 Refill [facility] Jelena Del Rio MD Essential hypertension, benign 12/21/2017 Refill [facility] Ramez Hall MD Hypothyroidism, unspecified type 12/18/2017 Refill [facility] Ramez Hall MD Hypothyroidism, unspecified type 09/26/2017 Refill [facility] Ramez Hall MD Essential hypertension, benign (Primary Dx) 07/25/2017 Lab Appointment Lab Ramez Hall MD Controlled type 2 diabetes mellitus without complication, without long-term current use of insulin; Essential hypertension: at goal 05/04/2017 Office Visit Rheumatology Keya Ledbetter MD Positive ISABEL (antinuclear BittarJonas, antibody) (Primary Dx); Fellow() Osteoarthritis of both knees, unspecified osteoarthritis type; Thyroid disease; Family history of systemic lupus erythematosus; Pes anserine bursitis; Obesity (BMI 30.0-34.9) 04/27/2017 Office Visit [facility] Ramez Hall MD Controlled type 2 [...] skin eruption; Lung nodule 04/07/2017 Office Visit [facility] Ramez Hall MD Positive ISABEL (antinuclear [...] Dyslipidemia; Hypothyroidism, unspecified type; Dizziness 03/21/2017 Refill Family Practice Earl Anderson RN Impaired fasting glucose 03/14/2017 Refill [facility] Ramez Hall MD Hypothyroidism, unspecified type 02/20/2017 Pharmacy Visit 02/08/2017 Pharmacy Visit 02/08/2017 Refill Family Practice Bernardino Gann MD Essential hypertension, benign after 12/25/2016 Immunizations Name Dates Previously Given Next Due [...] Father Arthritis Mother Diabetes Mother Heart Mother PA at age 66 Stroke Mother Relation Name [...] Taken Blood Pressure 143/70 05/04/2017 9:06 AM HEALTH TECHNICAL WRITER Pulse 76 05/04/2017 9:06 AM HEALTH TECHNICAL WRITER Temperature 36.7 C (98 F) 05/04/2017 9:06 AM HEALTH TECHNICAL WRITER Respiratory Rate 18 05/04/2017 9:06 AM HEALTH TECHNICAL WRITER Oxygen Saturation - - Inhaled Oxygen - - Concentration Weight 106.2 kg (234 lb 3.2 oz) 05/04/2017 9:06 AM HEALTH TECHNICAL WRITER Height 162.6 cm (5' 4") 05/04/2017 9:06 AM HEALTH TECHNICAL WRITER Body Mass Index 40.2 05/04/2017 9:06 AM HEALTH TECHNICAL WRITER Plan of Treatment Health Maintenance Due Date Last Done Comments DM Foot Exam (Yearly) 06/06/2017 06/06/2016 DM Retinal Exam (Yearly) 06/20/2017 06/20/2016, 08/20/2014, 07/21/2014, Additional history exists Breast Cancer Scrn 07/04/2017 07/04/2016, 04/15/2015, 02/14/2013, (Yearly) Additional history exists Colorectal Cancer Scrn 07/26/2017 07/26/2016, 10/18/2007, 10/18/2007, Annual (FIT/FOBT) Age 51 Additional history exists to 76 DM HGBA1C (Yearly) 07/25/2018 07/25/2017, 03/23/2017, 06/20/2016, Additional history exists IMM Pneumococcal Age 66 Completed 11/10/2011 and Up Procedures Procedure Name Priority Date/Time Associated Diagnosis Comments LIPID PROFILE Routine 07/25/2017 Controlled type 2 Results for this 8:16 AM CDT diabetes mellitus without procedure are in the complication, without results section. long-term current use of insulin Essential hypertension: at goal CBC/DIFF Routine 07/25/2017 Controlled type 2 Results for this 8:16 AM CDT diabetes mellitus without procedure are in the complication, without results section. long-term current use of insulin Essential hypertension: at goal HEMOGLOBIN A1C Routine 07/25/2017 Controlled type 2 Results for this 8:16 AM CDT diabetes mellitus without procedure are in the complication, without results section. long-term current use of insulin Essential hypertension: at goal BASIC METABOLIC PANEL Routine 07/25/2017 Controlled type 2 Results for this 8:16 AM CDT diabetes mellitus without procedure are in the complication, without results section. long-term current use of insulin Essential hypertension: at goal LIVER PROFILE Routine 07/25/2017 Controlled type 2 Results for this 8:16 AM CDT diabetes mellitus without procedure are in the complication, without results section. long-term current use of insulin Essential hypertension: at goal BMP POC Routine 04/19/2017 Results for this 2:06 PM HEALTH TECHNICAL WRITER procedure are in the results section. CT CHEST W/O CONTRAST Routine 04/17/2017 Rash and other Results for this ROUTINE 1:55 PM HEALTH TECHNICAL WRITER nonspecific skin eruption procedure are in the Lung nodule results section. FOLIC ACID Routine 04/07/2017 Positive ISABEL (antinuclear Results for this 8:55 AM HEALTH TECHNICAL WRITER antibody) procedure are in the Elevated MCV results section. Weakness of both lower extremities Unsteadiness on feet VITAMIN B12 Routine 04/07/2017 Unsteadiness on feet Results for this 8:55 AM HEALTH TECHNICAL WRITER Positive ISABEL (antinuclear procedure are in the antibody) results section. Elevated MCV Weakness of both lower extremities CCP IGG ABS Routine 04/07/2017 Positive ISABEL (antinuclear Results for this 8:55 AM HEALTH TECHNICAL WRITER antibody) procedure are in the Elevated MCV results section. RA FACTOR Routine 04/07/2017 Positive ISABEL (antinuclear Results for this 8:55 AM HEALTH TECHNICAL WRITER antibody) procedure are in the Elevated MCV results section. SED RATE Routine 04/03/2017 Positive ISABEL (antinuclear Results for this 1:17 PM HEALTH TECHNICAL WRITER antibody) procedure are in the Hypothyroidism, results section. unspecified type COMPLEMENT C4 Routine 04/03/2017 Positive ISABEL (antinuclear Results for this 1:17 PM HEALTH TECHNICAL WRITER antibody) procedure are in the Hypothyroidism, results section. unspecified type COMPLEMENT C3 Routine 04/03/2017 Positive ISABEL (antinuclear Results for this 1:17 PM HEALTH TECHNICAL WRITER antibody) procedure are in the Hypothyroidism, results section. unspecified type CRP, HIGH SENS Routine 04/03/2017 Positive ISABEL (antinuclear Results for this 1:17 PM HEALTH TECHNICAL WRITER antibody) procedure are in the Hypothyroidism, results section. unspecified type CK Routine 04/03/2017 Positive ISABEL (antinuclear Results for this 1:17 PM HEALTH TECHNICAL WRITER antibody) procedure are in the Hypothyroidism, results section. unspecified type SJOGREN'S AB Routine 04/03/2017 Positive ISABEL (antinuclear Results for this 1:17 PM HEALTH TECHNICAL WRITER antibody) procedure are in the Hypothyroidism, results section. unspecified type ANTI DSDNA BY CRITHIDIA Routine 04/03/2017 Positive ISABEL (antinuclear Results for this 1:17 PM HEALTH TECHNICAL WRITER antibody) procedure are in the Hypothyroidism, results section. unspecified type ANTI TORRES [employer] AB Routine 04/03/2017 Positive ISABEL (antinuclear Results for this 1:17 PM HEALTH TECHNICAL WRITER antibody) procedure are in the Hypothyroidism, results section. unspecified type ANTI TORRES AB Routine 04/03/2017 Positive ISABEL (antinuclear Results for this 1:17 PM HEALTH TECHNICAL WRITER antibody) procedure are in the Hypothyroidism, results section. unspecified type TSH Routine 04/03/2017 Positive ISABEL (antinuclear Results for this 1:17 PM HEALTH TECHNICAL WRITER antibody) procedure are in the Hypothyroidism, results section. unspecified type ISABEL Routine 03/23/2017 Rash and other Results for this 4:19 PM HEALTH TECHNICAL WRITER nonspecific skin eruption procedure are in the results section. HEMOGLOBIN A1C Routine 03/23/2017 Rash and other Results for this 4:19 PM HEALTH TECHNICAL WRITER nonspecific skin eruption procedure are in the Lung nodule results section. CBC/DIFF Routine 03/23/2017 Rash and other Results for this 4:19 PM HEALTH TECHNICAL WRITER nonspecific skin eruption procedure are in the Lung nodule results section. COMPREHENSIVE METABOLIC Routine 03/23/2017 Rash and other Results for this PANEL(DBIL NOT INCLUDED) 4:19 PM HEALTH TECHNICAL WRITER nonspecific skin eruption procedure are in the Lung nodule results section. TSH Routine 03/23/2017 Rash and other Results for this 4:19 PM HEALTH TECHNICAL WRITER nonspecific skin eruption procedure are in the Lung nodule results section. after 12/25/2016 Results * HEMOGLOBIN A1C (07/25/2017 8:16 AM) Only the most recent of 2 results within the time period is included. Hemoglobin A1c 6.3 (H) 4.3 - 6.1 % [facility] IMMUNOLOGY Est Average Gluc 134.1 mg/dL [facility]MMUN[facility] Specimen Blood Performing Organization Address [facility] [place] Phone Number [facility] * LIVER PROFILE (07/25/2017 8:16 AM) T Protein 6.4 6.0 - 8.3 g/dL BT MAIN-STATION 1 Albumin 3.8 3.7 - 5.3 g/dL BT [facility] 1 T Bilirubin 0.5 0.2 - 1.2 mg/dL BT MAIN[facility] 1 Alk Phos 69 34 - 104 U/L BT [facility] 1 AST 18 13 - 39 U/L BT [facility] 1 ALT 30 7 - 52 U/L BT [facility] 1 D Bilirubin 0.1 0.0 - 0.2 mg/dL BT [facility] 1 Specimen Blood Performing Organization Address [facility] [place] Phone Number [facility] BT [facility]IN[facility] 1 * LIPID PROFILE (07/25/2017 8:16 AM) Cholesterol 186 mg/dL BT [facility]IN-ST[facility] 1 Comment: REFERENCE RANGE: Desirable: <200 mg/dL Borderline: 200-240 mg/dL High Risk: >240 mg/dL Triglyceride 135 <150 mg/dL BT MAIN-STATION 1 Comment: REFERENCE RANGE: Normal: <150 mg/dL Borderline High: 150-199 mg/dL High: 200-499 mg/dL Very High: >fk=463 mg/dL HDL 45 mg/dL BT MAIN-STATION 1 Comment: Increased CHD risk: <40 mg/dL Decreased CHD risk: >60 mg/dL LDL 114 mg/dL BT [facility]ST[facility] 1 Comment: REFERENCE RANGE: Optimal: <100 mg/dL Near Optimal: 100-129 mg/dL Borderline High: 130-159 mg/dL High: 160-189 mg/dL Very High: >ma=665 mg/dL Specimen Blood Performing Organization Address City/State/Zipcode Phone Number [facility] BT [facility] 1 * CBC/DIFF (07/25/2017 8:16 AM) Only the most recent of 2 results within the time period is included. WBC 5.6 4.5 - 11.0 K/uL BT [facility]IN[facility] 2 RBC 4.48 4.20 - 5.40 M/uL BT [facility] 2 Hemoglobin 13.3 12.0 - 16.0 g/dL BT [facility] 2 Hematocrit 42.8 37.0 - 47.0 % BT [facility] 2 MCV 96 (H) 82 - 92 fL BT [facility] 2 MCH 29.7 27.0 - 32.0 pg BT [facility]IN[facility] 2 MCHC 31.1 (L) 32.0 - 36.0 g/dL BT [facility] 2 RDW 50.4 (H) 36.4 - 46.3 fL BT [facility] 2 Platelet 199 150 - 400 K/uL BT [facility] 2 Mean Platelet Volume 12.1 9.4 - 12.4 fL BT [facility] 2 Percent NRBC 0.0 BT [facility] 2 Absolute NRBC 0.00 BT [facility] 2 Neutrophil 58.6 34.0 - 70.0 % BT [facility] 2 Lymphocyte 27.9 20.0 - 50.0 % BT [facility] 2 Monocyte 10.7 5.0 - 12.0 % BT [facility] 2 Eosinophil 1.6 0.7 - 5.0 % BT [facility] 2 Basophil 0.7 0.1 - 1.2 % BT [facility] 2 Pct Immat Gran 0.5 0.0 - 0.5 BT [facility] 2 Neutrophil, Abs 3.28 1.56 - 6.13 K/uL BT [facility]IN[facility] 2 Lymphocyte, Abs 1.56 1.18 - 3.74 K/uL BT [facility] 2 Monocyte, Abs 0.60 (H) 0.24 - 0.36 K/uL BT [facility]IN[facility] 2 Eosinophil, Abs 0.09 0.04 - 0.36 K/uL BT [facility]IN[facility] 2 Basophil, Abs 0.04 0.01 - 0.08 K/uL BT [facility] 2 Absol Immat Gran 0.03 0.00 - 0.03 K/uL BT [facility] 2 Specimen Blood Performing Organization Address [facility] [place] Phone Number [facility] 2 * BASIC METABOLIC PANEL (07/25/2017 8:16 AM) CO2 30 21 - 31 mmol/L BT [facility]IN[facility] 1 Chloride 106 98 - 107 mmol/L BT [facility] 1 Potassium 4.3 3.5 - 5.1 mmol/L BT [facility] 1 Sodium 144 136 - 145 mmol/L BT [facility] 1 Glucose 107 70 - 110 mg/dL BT [facility] 1 Urea Nitrogen 17 7 - 25 mg/dL BT [facility] 1 Creatinine 0.70 0.6 - 1.2 mg/dL BT [facility] 1 Anion Gap 8 BT [facility] 1 Calcium 9.3 8.6 - 10.3 mg/dL BT [facility] 1 GFR, Estimated >60 mL/min/1.73 m2 BT [facility] 1 GFR, Estim, Afr-Am >60 mL/min/1.73 m2 BT [facility] 1 Specimen Blood Performing Organization Address [facility] [place] Phone Number [facility] 1 * BMP POC (04/19/2017 2:06 PM) TCO2 POC 30 21 - 32 mmol/L [facility] Chloride POC 103 98 - 107 mmol/L [facility] Potassium POC 3.7 3.50 - 5.10 mmol/L [facility] Sodium POC 141 136 - 145 mmol/L [facility] Glucose POC 111 (H) 74 - 106 mg/dL [facility] Urea Nitrogen POC 14 7 - 18 mg/dL [facility] Creatinine POC 0.8 0.6 - 1.3 mg/dL [facility] Ionized Calcium POC 0.98 (L) 1.15 - 1.29 mmol/L [facility] GFR, Estimated >60 mL/min/1.73 m2 [facility] GFR, Estim, Afr-Am >60 mL/min/1.73 m2 [facility] Performing Organization Address City/State/Zipcode Phone Number [facility] * CT CHEST W/O CONTRAST ROUTINE (04/17/2017 1:55 PM) Impressions Performed At IMPRESSION: SMS A calcified granuloma in the right upper lobe from old granulomatous disease corresponds to the nodular opacity seen on comparison chest radiograph. Dictated By: Anupam Jones MD, 04/17/2017 2:12 PM I have reviewed the study and agree with the findings in this report. Signed By: Autumn Begum MD, 04/17/2017 4:28 PM Narrative Performed At EXAM: CT Chest WITHOUT contrast SMS INDICATION: Lung nodule COMPARISON: Chest radiograph 01/13/2016 [...] Interface, Rad/Mammog In - 04/17/2017 4:33 PM HEALTH TECHNICAL WRITER EXAM: CT Chest WITHOUT contrast INDICATION: Lung [...] By: Autumn Begum MD, 04/17/2017 4:28 PM Performing Organization Address [facility] [place] Phone Number SMS * CCP IGG ABS (04/07/2017 8:55 AM) CCP Abs IgG/IgA 3 LABORATORY Reference range: 0 to 19 [employer] Unit: units AMRIK (note) Negative <20 Weak [id number] - 39 Moderate [id number] - 59 Strong positive>59 Specimen Blood Performing Organization Address [facility] [place] Phone Number [employer] [address] [place], [place] [address] AMRIK 145 * FOLIC ACID (04/07/2017 8:55 AM) Folic Acid 17.5 5.9 - 24.8 ng/mL BT [facility] 3 Specimen Blood Performing Organization Address [facility] [place] Phone Number [employer] BT [facility]IN[facility] 3 * VITAMIN B12 (04/07/2017 8:55 AM) Vitamin B12 427 211 - 911 pg/mL BT [facility] 3 Specimen Blood Performing Organization Address [facility] [place] Phone Number [facility] BT MAIN-STATION 3 * RA FACTOR (04/07/2017 8:55 AM) RA Factor <10 0 - 15 IU/mL BT [facility] 4 Specimen Blood Performing Organization Address [facility] [place] Phone Number [facility] BT MAIN-STATION 4 * SJOGREN'S AB (04/03/2017 1:17 PM) Anti SSA Negative 0 - 15 EU/mL BT DIAGNOSTIC Comment: IMMUNOLOGY REFERENCE RANGE: Negative<16 [id number] Positive>20 Anti SSB Negative 0 - 15 EU/mL [facility] Comment: IMMUNOLOGY REFERENCE RANGE: Negative<16 [id number] Positive>20 Specimen Blood Performing Organization Address [facility] [place] Phone Number [facility] BT DIAGNOSTIC IMMUNOLOGY * ANTI TORRES [employer] AB (04/03/2017 1:17 PM) Anti-Sm/[employer] Negative EU/mL BT DIAGNOSTIC Comment: IMMUNOLOGY REFERENCE RANGE: Negative<16 [id number] Positive>20 Specimen Blood Performing Organization Address [facility] [place] Phone Number [facility] BT DIAGNOSTIC IMMUNOLOGY * ANTI TORRES AB (04/03/2017 1:17 PM) Anti-Torres Negative EU/mL BT DIAGNOSTIC Comment: IMMUNOLOGY REFERENCE RANGE: Negative<16 [id number] Positive>20 Specimen Blood Performing Organization Address [facility] [place] Phone Number [facility] BT DIAGNOSTIC IMMUNOLOGY * CRP, HIGH SENS (04/03/2017 1:17 PM) CRP, high sens 0.804 (H) 0.000 - 0.300 mg/dL BT MAIN[facility]STATION 4 Specimen Blood Performing Organization Address [facility] [place] Phone Number [facility] BT MAIN-STATION 4 * TSH (04/03/2017 1:17 PM) Only the most recent of 2 results within the time period is included. TSH 0.97 0.45 - 3.50 uIU/mL BT MAIN[facility]STATION 3 Specimen Blood Performing Organization Address [facility] [place] Phone Number [facility] * SED RATE (04/03/2017 1:17 PM) Sed Rate 26 <30 mm/Hr BT MAIN-STATION 3 Specimen Blood Performing Organization Address [facility]/Zipcode Phone Number [facility] BT MAIN-STATION 3 * ANTI DSDNA BY CRITHIDIA (04/03/2017 1:17 PM) Anti dsDNA Negative NEG Titer BT DI[facility]STIC IMMUNOLOGY Specimen Blood Performing Organization Address [facility] Phone Number [facility] BT [facility]IC IMMUNOLOGY * CK (04/03/2017 1:17 PM) CK 141 30 - 200 U/L BT MAIN[facility]STATION 4 Specimen Blood Performing Organization Address [facility] Phone Number [facility] BT [facility]IN-ST[facility] 4 * COMPLEMENT C4 (04/03/2017 1:17 PM) Complement C4 31.3 10.0 - 40.0 mg/dL BT MAIN-STATION 4 Specimen Blood Performing Organization Address [facility] Phone Number [facility] BT [facility]IN-ST[facility] 4 * COMPLEMENT C3 (04/03/2017 1:17 PM) Complement C3 134.0 90.0 - 180.0 mg/dL BT MAIN-STATION 4 Specimen Blood Performing Organization Address [facility] [place] Phone Number [facility] BT MAIN-STATION 4 * COMPREHENSIVE METABOLIC PANEL(DBIL NOT INCLUDED) (03/23/2017 4:19 PM) Albumin 3.3 (L) 3.4 - 5.0 g/dL BT MAIN-STATION 3 Calcium 8.7 8.50 - 10.20 mg/dL BT MAIN[facility]STATION 3 CO2 28.7 21 - 32 mmol/L BT MAIN[facility] 3 Chloride 106 98 - 107 mmol/L BT [facility] 3 Creatinine 0.77 0.60 - 1.30 mg/dL BT [facility] 3 Glucose 99 70 - 99 mg/dL BT [facility] 3 Alk Phos 72 45 - 117 U/L BT [facility] 3 Potassium 3.8 3.50 - 5.10 mmol/L BT [facility]IN[facility] 3 Sodium 142 136 - 145 mmol/L BT [facility]IN[facility] 3 ALT 47 12 - 78 U/L BT [facility] 3 AST 32 15 - 37 U/L BT [facility]ST[facility] 3 Urea Nitrogen 13 7 - 18 mg/dL BT [facility] 3 T Bilirubin 0.5 0.2 - 1.0 mg/dL BT [facility] 3 T Protein 6.9 6.4 - 8.2 g/dL BT [facility]IN[facility] 3 GFR, Estimated >60 mL/min/1.73 m2 BT MAIN-STATION 3 GFR, Estim, Afr-Am >60 mL/min/1.73 m2 BT [facility]IN[facility]STATION 3 Anion Gap 7.3 BT [facility]IN[facility]STATION 3 Specimen Blood Performing Organization Address City/State/[facility] Phone Number [facility] BT [facility]-STATION 3 * ISABEL (03/23/2017 4:19 PM) ISABEL Screen Positive (A) NEG BT DIAGNOSTIC IMMUNOLOGY ISABEL Titer 640 Titer BT DIAGNOSTIC IMMUNOLOGY ISABEL Pattern Homogenous Pattern BT DIAGNOSTIC IMMUNOLOGY Specimen Blood Performing Organization Address City/State[facility] Number MISYS BT DIAGNOSTIC IMMUNOLOGY after 12/25/2016
[2017-12-26] MEDS ORDERED: HYDROCODONE/APAP 10MG-325MG TAB PO ONE (16:45)
[2017-12-26] MEDS ORDERED: KETOROLAC TROMETHAMINE 60 MG/2 ML VIAL IM ONE (16:45)
[2017-12-26] MEDS ORDERED: CYCLOBENZAPRINE HCL 10 MG TAB PO ONE (16:45)
[2017-12-26] MEDS ORDERED: TRAMADOL HCL 50 MG TAB PO ONE (17:15)
[2017-12-26 17:18] LABS: BILIRUBIN,URINE NEGATIVE (NEGATIVE); CLARITY,URINE CLEAR (CLEAR); COLOR,URINE YELLOW (YELLOW); KETONES,URINE NEGATIVE (NEGATIVE); LEUKOCYTE ESTERASE ,URINE TRACE (NEGATIVE); NITRITE,URINE NEGATIVE (NEGATIVE); PROTEIN,URINE DIPSTICK NEGATIVE (NEGATIVE); URINE UROBILINOGEN 0.2 mg/dL (0.2 - 1)
[2017-12-26 17:29] LABS: BACTERIA,URINE MODERATE /HPF; EPITHELIAL CELLS,URINE MANY /LPF; RENAL EPITHELIAL CELLS,URINE FEW; TRANSITIONAL EPI CELLS,URINE MODERATE
[2017-12-26 18:07] VITALS: BP 134/72
== END 2017-12-26 18:17 | disposition home or self-care (01) ==
LOC: ER 16:34
DX: M54.5 Low back pain (principal); N39.0 Urinary tract infection, site not specified; I10 Essential (primary) hypertension; E11.9 Type 2 diabetes mellitus without complications; E03.9 Hypothyroidism, unspecified; K21.9 Gastro-esophageal reflux disease without esophagitis
CPT/HCPCS: 81001; 87086; 99283; J1885

== ENCOUNTER → 2018-02-13 | Outpatient (CLI) | payer MEDICARE ==
--- NOTE | 2018-02-27 08:48 | Diagnostic Imaging Report ---
#[id number] - MGSCRBIL #BILATERAL DIGITAL SCREENING MAMMOGRAM WITH CAD: 02/13/2018 CLINICAL: Routine screening. Comparison is made to exams dated: 04/15/2015 mammogram, 02/14/2013 mammogram and 07/04/2016 mammogram - [facility]. Current study contains 4 films. The tissue of both breasts is predominantly fatty. Current study was also evaluated with a Computer Aided Detection (CAD) system. There are benign calcifications in both breasts. There also are benign vascular calcifications in the right breast. No significant masses, calcifications, or other findings are seen in either breast. There has been no significant interval change. IMPRESSION: BENIGN There is no mammographic evidence of malignancy. A 1 year screening mammogram is recommended. The patient will be notified by letter of the results. Bryn akers/gayle:02/23/2018 08:19:59 Rug Dry Room Attendant: Ivory WILLETT)(Zach), [facility] letter sent: Compared to Prior B9 Mammogram BI-RADS: 2 Benign
== END ==
LOC: MAMMO 13:03
PROVIDERS: ATTEND Internal Medicine
DX: Z12.31 Encounter for screening mammogram for malignant neoplasm of breast (principal)
CPT/HCPCS: 77067

== ENCOUNTER → 2018-09-19 | Outpatient (CLI) | payer MEDICARE, OTHER ==
--- NOTE | 2018-09-21 08:17 | Diagnostic Imaging Report ---
EXAMINATION: Bone mineral density study. COMPARISON: None. HISTORY: Menopausal state DISCUSSION: Evaluation of the left hip and lumbar spine was performed utilizing a DEXA Hologic bone densitometer. The study is technically adequate. The left hip total bone mineral density is 0.892 gm/cm2, the T-score is -0.5, and the Z-score is 0.8. The left hip femoral neck bone mineral density is 0.814 gm/cm2, the T-score is -0.5, and the Z-score is 1.1. The lumbar spine total bone mineral density is 1.188 gm/cm2, the T-score is 1.3, and the Z-score is 3.2. IMPRESSION: 1. WHO classification of normal bone mineral density for the left hip with no increase risk of fracture. 2. WHO classification of normal bone mineral density for the lumbar spine with no increased risk of fracture. The patient's fracture risk is compared to an age-matched control. Medical evaluation for secondary causes of low bone bone mineral density may be appropriate. Correlate clinically for the necessity and timing of the next bone mineral density study. National [employer]opor[employer] Foundation recommendations: Initiate therapy to reduce fracture risk in postmenopausal women with -BMD t-scores below -2.0 by central DXA with no risk factors -BMD t-scores below -1.5 by central DXA with one or more risk factors (first deg relative with hip fracture, prior personal fracture, low body weight, smoking) -A prior vertebral or hip fracture AACE (Clinical Endocrinology) recommends treating the following: Postmenopausal women who have osteoporosis as diagnosed by fragility fractures or t scores -2.5 or below Postmenopausal women who have risk factors (including fh of hip fracture, low body weight, smoking, risk of falling, high bone turnover, advancing age) and borderline low BMD T scores of -1.5 or below Adequate intake of calcium (at least 1200mg/day) and vitamin D (400-800 IU/day). Regular weight bearing and muscle - strengthening exercises Avoid smoking and excessive alcohol Signed by: Dr. Rashard Harper M.D. on 09/21/2018 8:13 AM
== END ==
LOC: DX 15:26
PROVIDERS: ATTEND Internal Medicine
DX: Z78.0 Asymptomatic menopausal state (principal); M15.9 Polyosteoarthritis, unspecified
CPT/HCPCS: 77080

== ENCOUNTER → 2019-09-10 | Outpatient (CLI) | payer OTHER, MEDICARE | LOC: MAMMO 13:39 | PROVIDERS: ATTEND Internal Medicine | DX: Z12.31 Encounter for screening mammogram for malignant neoplasm of breast (principal) | CPT/HCPCS: 77067 ==

== ENCOUNTER → 2020-01-16 | Outpatient (CLI) | payer MEDICARE | LOC: RAD 14:12 | PROVIDERS: ATTEND Internal Medicine | DX: M47.816 Spondylosis without myelopathy or radiculopathy, lumbar region (principal) | CPT/HCPCS: 72110; 72220 ==

== ENCOUNTER → 2021-06-02 | Outpatient (CLI) | payer MEDICARE | LOC: US 11:20 | PROVIDERS: ATTEND Internal Medicine | DX: N95.0 Postmenopausal bleeding (principal) | CPT/HCPCS: 76830; 76856 ==

== ENCOUNTER → 2021-08-31 | Outpatient (CLI) | payer MEDICARE, OTHER | LOC: MAMMO 11:58 | PROVIDERS: ATTEND Internal Medicine | DX: Z12.31 Encounter for screening mammogram for malignant neoplasm of breast (principal) | CPT/HCPCS: 77067 ==

== ENCOUNTER 2022-01-13 04:25 | Emergency (ER) | payer MEDICARE, OTHER ==
[~2022-01-13] VITALS: Ht 162.6 cm; Wt 104.3 kg
== END 2022-01-13 05:46 | disposition home or self-care (01) ==
LOC: ER 04:34
DX: I10 Essential (primary) hypertension (principal); R51.9 Headache, unspecified; M54.9 Dorsalgia, unspecified; G47.8 Other sleep disorders; E11.9 Type 2 diabetes mellitus without complications; E03.9 Hypothyroidism, unspecified; E78.00 Pure hypercholesterolemia, unspecified; Z91.041 Radiographic dye allergy status; Z79.84 Long term (current) use of oral hypoglycemic drugs; Z79.899 Other long term (current) drug therapy
CPT/HCPCS: 99282

== ENCOUNTER → 2022-01-19 | Outpatient (CLI) | payer MEDICARE, OTHER | LOC: RAD 15:24 | PROVIDERS: ATTEND Internal Medicine | DX: M47.816 Spondylosis without myelopathy or radiculopathy, lumbar region (principal) | CPT/HCPCS: 72110 ==

== ENCOUNTER → 2023-11-09 | Outpatient (REF) | payer MEDICARE, OTHER | LOC: RAD 13:42 | PROVIDERS: ATTEND Internal Medicine | DX: J41.0 Simple chronic bronchitis (principal) | CPT/HCPCS: 71046 ==

== ENCOUNTER → 2024-06-05 | Outpatient (REF) | payer MEDICARE, OTHER | LOC: MAMMO 11:51 | PROVIDERS: ATTEND Internal Medicine | DX: Z12.31 Encounter for screening mammogram for malignant neoplasm of breast (principal); M85.88 Other specified disorders of bone density and structure, other site; M43.07 Spondylolysis, lumbosacral region; E66.01 Morbid (severe) obesity due to excess calories | CPT/HCPCS: 72148; 77067; 77080 ==

== ENCOUNTER 2024-07-12 22:17 | Emergency (ER) | payer MEDICARE, OTHER ==
[~2024-07-12] VITALS: Ht 162.6 cm; Wt 108.0 kg
[2024-07-12 22:36] VITALS: PULSE 97; RESP 18; TEMP 98.7
[2024-07-12] MEDS: ACETAMINOPHEN 325 MG TAB PO ONE (22:43)
[2024-07-13] MEDS ORDERED: NAPROSYN500 MG PO (00:32)
[2024-07-13] MEDS ORDERED: METHOCARBAMOL750 MG PO (00:32)
[2024-07-13] MEDS: METHOCARBAMOL 750 MG TAB PO ONE (01:16)
[2024-07-13] MEDS: NAPROXEN 250 MG TAB PO ONE (01:16)
[2024-07-13 01:17] VITALS: BP 154/74; PULSE 74; RESP 18; TEMP 98.2; O2SAT 98
== END 2024-07-13 01:17 | disposition home or self-care (01) ==
LOC: ER 22:30
DX: S16.1XXA Strain of muscle, fascia and tendon at neck level, initial encounter (principal); M25.512 Pain in left shoulder; M25.511 Pain in right shoulder; S39.012A Strain of muscle, fascia and tendon of lower back, initial encounter; M25.562 Pain in left knee; M25.561 Pain in right knee; V43.52XA Car driver injured in collision with other type car in traffic accident, initial encounter; Y92.488 Other paved roadways as the place of occurrence of the external cause
CPT/HCPCS: 70450; 72125; 72128; 72131; 72170; 99284